=== PATIENT | female | born 1980 | race Caucasian/White ===

== ENCOUNTER 2016-07-25 08:03 | Emergency (ER) | payer MEDICAID ==
[~2016-07-25] VITALS: Ht 175.3 cm; Wt 77.6 kg
[2016-07-25 12:45] VITALS: BP 107/64
== END 2016-07-25 12:45 | disposition home or self-care (01) ==
LOC: ED 08:03
DX: G43.909 Migraine, unspecified, not intractable, without status migrainosus (principal)
CPT/HCPCS: J1200; J2765